=== PATIENT | female | born 1995 | race Caucasian/White ===

== ENCOUNTER 2018-10-17 13:58 | Emergency (ER) | payer OTHER ==
[~2018-10-17] VITALS: Ht 162.6 cm; Wt 47.0 kg
[2018-10-17 14:16] VITALS: BP 124/66
== END 2018-10-17 20:00 | disposition home or self-care (01) ==
LOC: EEVIPCON 13:58 → ER 13:58
DX: T74.21XA Adult sexual abuse, confirmed, initial encounter (principal); R10.30 Lower abdominal pain, unspecified; Y07.9 Unspecified perpetrator of maltreatment and neglect
CPT/HCPCS: 99281; 99283